=== PATIENT | female | born 1975 | race American Indian/Alaskan Native ===

== ENCOUNTER 2018-08-27 10:50 | Day surgery (SDC) | payer MEDICAID ==
[2018-08-27] MEDS ORDERED: NACL 0.9% 1000 ML 1,000 ML IV SCH (12:00)
[2018-08-27] MEDS ORDERED: DIPRIVAN 10 MG/ML IV ONE ×2 (12:16)
--- NOTE | 2018-08-27 12:35 | Operative Report ---
Operative Report Operative Report: DOS: 08/27/18 SURGEON: Zach Doe MD COLONOSCOPY REPORT PREOPERATIVE AND POSTOPERATIVE DIAGNOSIS: Iron def. Anemia DESCRIPTION OF PROCEDURE: The colonoscope was passed to the terminal ileum as identified by the ileal tissue. Scope was carefully withdrawn. Retroflexion was performed in the rectum. At the end of procedure, the scope was cleaned using normal technique. Vital signs monitored continuously throughout. SEDATION: Provided by [facility]. Quality of the prep was adequate. COMPLICATIONS: None. ESTIMATED BLOOD LOSS: none FINDINGS: * Normal Terminal Ileum * Small internal hemorrhoids * Remainder of the exam was normal RECOMMENDATIONS: * Repeat colonoscopy in 10 years * Return to clinic in 4-6 weeks, where I will ensure she is taking iron appropriately, if she is and remains significantly iron deficient will need EGD for further evaluation CC copy of note to PCP Dr. Jurgen Echeverria
[2018-08-27 13:11] VITALS: BP 136/83
--- NOTE | 2018-08-27 16:11 | Anesthesia Consultation ---
Anesthesia Consult and Med Hx Date of service: 08/27/18 - Airway Anesthetic Teeth Evaluation: Good ROM Head & Neck: Adequate Mental/Hyoid Distance: Adequate Mallampati Class: Class I Intubation Access Assessment: Good - Pulmonary Exam CTA: Yes - Cardiac Exam Cardiac Exam: RRR - Pre-Operative Health Status ASA Pre-Surgery Classification: ASA2 Proposed Anesthetic Plan: MAC - Hematic Hx Anemia: Yes
--- NOTE | 2018-08-27 16:11 | Anesthesia Day of Surgery ---
Anesthesia Day of Surgery - Day of Surgery Patient Examined: Yes Patient H&P Reviewed: Yes Patient is NPO: Yes
== END 2018-08-27 10:51 | disposition home or self-care (01) ==
LOC: GIO 10:50
PROVIDERS: ATTEND Student in an Organized Health Care Education/Training Program
DX: K64.8 Other hemorrhoids (principal); K62.89 Other specified diseases of anus and rectum; D50.9 Iron deficiency anemia, unspecified; Z88.8 Allergy status to other drugs, medicaments and biological substances; Z90.49 Acquired absence of other specified parts of digestive tract; Z98.890 Other specified postprocedural states; Z79.899 Other long term (current) drug therapy
CPT/HCPCS: 45378; 81025; J2704; J7030